=== PATIENT | male | born 1970 | race African-American/Black ===

== ENCOUNTER 2016-10-17 16:36 | Emergency (ER) | payer SELFPAY ==
[2016-10-17 17:23] VITALS: BP 142/80
[2016-10-17] MEDS ORDERED: Famotidine IV* 10 MG/ML 2 ML (20 mg) IV SLOW PU ONE (17:31)
[2016-10-17] MEDS ORDERED: Ondansetron INJ* 2 MG/ML VIAL IV ONE (17:31)
[2016-10-17] MEDS ORDERED: NS 0.9% 1000 ML* 1,000 ML IV ONE (17:32)
--- NOTE | 2016-10-17 17:36 | UC ---
UC General HPI - HPI Summary HPI Summary: patient has been vomiting for 2 days. He is unable to keep down fluids or food, he is tired, urine is dark, generalized muscle pain weakness. - History of Current Complaint Chief Complaint: UCGI Stated Complaint: VOMITING Time Seen by Provider: 10/17/16 17:27 Hx Obtained From: Patient Onset/Duration: Sudden Onset, Lasting Days Timing: Constant Onset Severity: Moderate Current Severity: Moderate Pain Intensity: 6 Associated Signs & Symptoms: Positive: Abdominal Pain - epigastric, Dizziness, Headache, Nausea, Vomiting, Weakness - Allergy/Home Medications Allergies/Adverse Reactions: Allergies Allergy/AdvReac Type Severity Reaction Status Date / Time No Known Allergies Allergy Verified 10/17/16 17:19 Home Medications: Home Medications Hydrochlorothiazide TAB* [Hydrodiuril TAB*] mg PO DAILY 10/17/16 [History] Pravastatin (NF) [Pravachol (NF)] 10 mg PO DAILY 10/17/16 [History Confirmed 12/02] PMH/Surg Hx/FS Hx/Imm Hx Previously Healthy: Yes Cardiovascular History Of: Reports: Hypertension - Surgical History Surgical History: None - Family History Known Family History: Negative: Hypertension, Diabetes, Renal Disease - Social History Alcohol Use: Rare Substance Use Type: None Smoking Status (MU): Never Smoked Tobacco - Immunization History Most Recent Influenza Vaccination: June 2016 Review of Systems Constitutional: Fatigue Skin: Negative Eyes: Negative ENT: Negative Respiratory: Negative Cardiovascular: Negative Gastrointestinal: Abdominal Pain, Vomiting Genitourinary: Dysuria Motor: Negative Musculoskeletal: Myalgia Neurological: Headache Psychological: Negative All Other Systems Reviewed And Are Negative: Yes Physical Exam Triage Information Reviewed: Yes Appearance: Well-Nourished, Ill-Appearing, Pain Distress Vital Signs: Initial Vital Signs Temp 99 F 10/17/16 17:17 Pulse 90 10/17/16 17:17 Resp 16 10/17/16 17:17 BP 142/80 10/17/16 17:17 Pulse Ox 99 10/17/16 17:17 Vital Signs Reviewed: Yes Eye Exam: Normal Eyes: Positive: Conjunctiva Clear ENT Exam: Normal ENT: Positive: Pharynx normal, Pharyngeal erythema, TMs normal Dental Exam: Normal Neck exam: Normal Neck: Positive: Supple, Nontender, No Lymphadenopathy Respiratory Exam: Normal Respiratory: Positive: Chest non-tender, Lungs clear, Normal breath sounds Cardiovascular Exam: Normal Cardiovascular: Positive: No Murmur, Pulses Normal, Tachycardia Abdominal Exam: Other - epigastric tenderness, no cva tenderness, no masses or rebound tenderness Bowel Sounds: Positive: Present Musculoskeletal Exam: Normal Musculoskeletal: Positive: Strength Intact, ROM Intact, No Edema Neurological Exam: Normal Neurological: Positive: Alert, Muscle Tone Normal Psychological Exam: Normal Skin Exam: Normal Course/Dx - Course Course Of Treatment: history obtained, exam performed, IV fluids given with zofran and famotidine. UA obtained, blood noted in urine, patient states upon further questioning that he has had on and off left back pain. currently is non there. recommend follow up if pain persists. he denies any dysuria. - Differential Dx - Multi-Symptom Provider Diagnoses: hematuria. gastroenteritis Discharge - Discharge Plan Condition: Stable Disposition: HOME Patient Education Materials: Gastroenteritis (ED), Hematuria (ED) Forms: *Work Release Additional Instructions: Today you were treated for gastroenteritis. Your urine was positive for blood. if your back pain becomes more prevalent or frequent follow up for further evaluation. Take the medications as prescribed.
== END 2016-10-17 18:49 | disposition home or self-care (01) ==
LOC: UCCORT 16:36
DX: K52.9 Noninfective gastroenteritis and colitis, unspecified (principal); R31.9 Hematuria, unspecified
CPT/HCPCS: 96361; 96374; 96375; 99212; G0463; J2405

== ENCOUNTER 2018-10-30 11:58 | Emergency (ER) | payer OTHER ==
[2018-10-30] MEDS ORDERED: NS 0.9% 1000 ML* 1,000 ML IV SCH (12:45)
[2018-10-30 13:25] VITALS: BP 146/104
--- NOTE | 2018-10-30 14:20 | UC ---
Abdominal Pain Male HPI - HPI Summary HPI Summary: nausea and vomiting x 4 days diffuse abdominal discomfort , no radiation of the pain cannot keep anything down no fever, + chills and sweating , no diarrhea, no urinary symptoms feels very dehydrated - History of Current Complaint Chief Complaint: UCGeneralIllness Stated Complaint: NAUSEA CHILLSVOMITING HEADACHE Time Seen by Provider: 10/30/18 12:18 Hx Obtained From: Patient, Family/Security Supervisor Onset/Duration: Gradual Onset, Lasting Days - 4, Still Present Timing: Constant Severity Initially: Moderate Severity Currently: Severe Pain Intensity: 4 Pain Scale Used: 0-10 Numeric Location: Diffuse Radiates: No Character: Cramping Aggravating Factor(s): Food Alleviating Factor(s): Nothing Associated Signs And Symptoms: Positive: Diaphoresis, Nausea, Vomiting. Negative: Fever, Cough, Chest Pain, Dizzy, Back Pain, Constipation, Blood in Stool, Urinary Symptoms, Decreased Appetite, Diarrhea, Penile Discharge - Allergies/Home Medications Allergies/Adverse Reactions: Allergies Allergy/AdvReac Type Severity Reaction Status Date / Time No Known Allergies Allergy Verified 10/30/18 13:25 Home Medications: Home Medications Ibuprofen 600 mg PO ONCE 10/30/18 [History Confirmed 10/30/18] PMH/Surg Hx/FS Hx/Imm Hx - Additional Past Medical History Additional PMH: hx of pacreatitis Cardiovascular History: Hypertension - Surgical History Surgical History: None - Family History Known Family History: Negative: Hypertension, Diabetes, Renal Disease - Social History Alcohol Use: Rare Substance Use Type: None Smoking Status (MU): Never Smoked Tobacco - Immunization History Most Recent Influenza Vaccination: June 2016 Review of Systems All Other Systems Reviewed And Are Negative: Yes Constitutional: Positive: Chills, Fatigue Skin: Positive: Negative Eyes: Positive: Negative ENT: Positive: Negative Respiratory: Positive: Negative Cardiovascular: Positive: Negative Gastrointestinal: Positive: Abdominal Pain, Vomiting, Nausea Genitourinary: Positive: Negative Is Patient Immunocompromised?: No Physical Exam Triage Information Reviewed: Yes Appearance: Ill-Appearing, Pain Distress Vital Signs: Initial Vital Signs Temp 98.0 F 10/30/18 12:20 Pulse 103 10/30/18 12:20 Resp 18 10/30/18 12:20 BP 142/108 10/30/18 12:20 Pulse Ox 98 10/30/18 12:20 Vital Signs Reviewed: Yes Eyes: Positive: Conjunctiva Clear ENT: Positive: Normal ENT inspection, Hearing grossly normal, Pharynx normal Neck: Positive: Supple, Nontender, No Lymphadenopathy Respiratory: Positive: Chest non-tender, Lungs clear, Normal breath sounds Cardiovascular: Positive: Tachycardia Abdomen Description: Positive: Nontender, No Organomegaly, Soft. Negative: CVA Tenderness (R), CVA Tenderness (L), Distended, Guarding Bowel Sounds: Positive: Present Skin Exam: Normal Abd Pain Male Course/Dx - Course Course Of Treatment: hypertension : hasn't been taking his meds for the past 2 days. cont. with your HTN med, monitor your bp daily. follow up with your pcp - Differential Dx/Clinical Impression Provider Diagnosis: Abdominal pain, Vomiting, Hypertension Discharge - Sign-Out/Discharge Documenting (check all that apply): Patient Departure All imaging exams completed and their final reports reviewed: No Studies - Discharge Plan Condition: Stable Disposition: HOME Prescriptions: Ondansetron ODT TAB* [Zofran 4 MG Odt TAB*] 8 mg PO Q8H PRN #9 tab.odt PRN Reason: Nausea/Vomiting Patient Education Materials: Acute Nausea and Vomiting (ED), Hypertension (ED) Forms: *Work Release Referrals: No Primary Care Phys,NOPCP [Primary Care Provider] - 3 Days Additional Instructions: will check cbc, cmp, amylase / lipase check for pancreatitis / hepatitis please call the office in one day for the lab results please go to [facility] ED if getting worse - Billing Disposition and Condition Condition: STABLE Disposition: Home
[2018-10-30 19:10] LABS: ABS Basophils 0 10^3/ul (0-0.2); ABS Eosinophils 0 10^3/ul (0-0.6); ABS Lymphocytes 1.8 10^3/ul (1.0-4.8); ABS Monocytes 0.9 10^3/ul (0-0.8); ABS Nucleated RBC 0.1 10^3/ul; Eosinophil % 0 %; Hematocrit 52 % (42-52); Hemoglobin 17.6 g/dl (14.0-18.0); Lymphocyte % 16.5 %; Mean Corpuscular HGB Conc 34 g/dl (31-36); Mean Corpuscular Hemoglobin 27 pg (27-31); Mean Corpuscular Volume 79 fL (80-94); Mean Platelet Volume 8.2 fL (7.4-10.4); Nucleated Red Blood Cells % 0.5; Platelet Count 315 10^3/ul (150-450); Red Blood Count 6.61 10^6/ul (4.00-5.40); Red Cell Distribution Width 15 % (10.5-15); White Blood Count 10.7 10^3/ul (3.5-10.8)
[2018-10-30 19:20] LABS: Albumin 5.3 g/dL (3.2-5.2); Amylase 277 U/L (29-103); CO2 Carbon Dioxide 22 mmol/L (22-32); Calcium 10.2 mg/dL (8.6-10.3); Chloride 88 mmol/L (101-111); Sodium 129 mmol/L (135-145)
[2018-10-30 19:27] LABS: ALT 29 U/L (7-52); Albumin/Globulin Ratio 1.8 (1-3); Alkaline Phosphatase 54 U/L (34-104); BUN/Creatinine Ratio 24.2 (8-20); Blood Urea Nitrogen 60 mg/dL (6-24); EGFR Non-African American 27.8 (>60); Glucose 102 mg/dL (70-100); Total Protein 8.3 g/dL (6.4-8.9)
[2018-10-30 19:28] LABS: Anion Gap 19 mmol/L (2-11)
--- NOTE | 2018-10-31 07:06 | UC ---
- Progress Note Progress Note: Multiple lab abnormalities Please call patient IF worse go to ER If same go to ER If better needs to see PMD first available appt If no PMD please give him a list Course/Dx - Diagnoses Provider Diagnoses: Abdominal pain, Vomiting, Hypertension Discharge - Sign-Out/Discharge Documenting (check all that apply): Post-Discharge Follow Up All imaging exams completed and their final reports reviewed: No Studies - Discharge Plan Condition: Stable Disposition: HOME Prescriptions: Ondansetron ODT TAB* [Zofran 4 MG Odt TAB*] 8 mg PO Q8H PRN #9 tab.odt PRN Reason: Nausea/Vomiting Patient Education Materials: Acute Nausea and Vomiting (ED), Hypertension (ED) Forms: *Work Release Referrals: No Primary Care Phys,NOPCP [Primary Care Provider] - 3 Days Additional Instructions: will check cbc, cmp, amylase / lipase check for pancreatitis / hepatitis please call the office in one day for the lab results please go to [facility] ED if getting worse - Billing Disposition and Condition Condition: STABLE Disposition: Home
== END 2018-10-30 13:29 | disposition home or self-care (01) ==
LOC: UCCORT 11:58
DX: R10.9 Unspecified abdominal pain (principal); R11.10 Vomiting, unspecified; I10 Essential (primary) hypertension
CPT/HCPCS: 36415; 80053; 82150; 83690; 85025; 96360; 99212; G0463